=== PATIENT | male | born 1965 | race Caucasian/White ===

== ENCOUNTER 2021-08-18 02:00 | Emergency (ER) | payer OTHER ==
[~2021-08-18] VITALS: Ht 188 cm; Wt 108.9 kg
--- NOTE | 2021-08-18 02:26 | NUR ---
PT AAOX4. BIBSELF C/O CELLULITIS ON GROIN AREA X2 DAYS. SEEN AT [facility], 2 DAYS AGO, STATED MEDS DID NOT HELP. CELLULITIS GOT WORSE. PLACED IN BED 7 ON MONITOR AND PULSE OX. AWAITING ER MD FOR EVAL AND ORDERS. NO ACUTE DISTRESS NOTED. AWAITING ORDERS.
[2021-08-18] MEDS ORDERED: diphenhydrAMINE HCL 50 MG/ML VIAL ONE (02:29)
[2021-08-18] MEDS ORDERED: FAMOTIDINE/PF INJ 20 MG/2 ML VIAL IV ONE ×2 (02:30)
[2021-08-18] MEDS ORDERED: CEFEPIME 1 GM VIAL ONE (02:30)
[2021-08-18] MEDS ORDERED: VANCOMYCIN 1 GM in IV D5W 250 ML IV ONE (02:30)
[2021-08-18] MEDS ORDERED: MORPHINE SULFATE INJ 4 MG/ML DISP.SYRIN ONE (02:30)
[2021-08-18] MEDS ORDERED: VANCOMYCIN 1 GM VIAL ONE (02:30)
[2021-08-18] MEDS ORDERED: ONDANSETRON HCL/PF 4 MG/2 ML VIAL ONE (02:30)
[2021-08-18] MEDS ORDERED: MORPHINE SULFATE INJ 2 MG/ML DISP.SYRIN IV ONE (02:30)
[2021-08-18] MEDS ORDERED: IV NS 0.9% 1,000 ML BAG IV ONE (02:30)
[2021-08-18] MEDS ORDERED: KETOROLAC TROMETHAMINE 15 MG/ML VIAL ONE (02:30)
[2021-08-18] MEDS ORDERED: ONDANSETRON HCL/PF 4 MG/2 ML VIAL IVP ONE (02:30)
[2021-08-18] MEDS ORDERED: KETOROLAC TROMETHAMINE INJ 30 MG/ML VIAL IV ONE (02:30)
[2021-08-18] MEDS ORDERED: CEFEPIME 1 GM in IV D5W 50 ML IV ONE (02:30)
[2021-08-18] MEDS ORDERED: diphenhydrAMINE HCL 50 MG/ML VIAL IV ONE (02:30)
[2021-08-18] MEDS ORDERED: IOHEXOL-300 100 ML VIAL IV ONE (02:33)
[2021-08-18] MEDS ORDERED: IV NS 0.9% 250 ML IV ONE (02:33)
--- NOTE | 2021-08-18 03:07 | NUR ---
UNABLE TO PROVIDE URINE AT THIS TIME
--- NOTE | 2021-08-18 03:22 | NUR ---
DEVONID SWABBED, SENT TO LAB.
[2021-08-18 03:27] LABS: BASOPHILS # (AUTO) 0.1 K/uL (0.0-0.2); BASOPHILS % (AUTO) 0.6 % (0.0-2.0); EOSINOPHILS % (AUTO) 1.1 % (0.0-6.0); HEMATOCRIT 41 % (39-51); HEMOGLOBIN 13.9 g/dL (13.5-17.5); LYMPHOCYTES # (AUTO) 1.7 K/uL (0.8-4.8); LYMPHOCYTES % (AUTO) 13.2 % (20.0-44.0); MEAN CORPUSCULAR HGB CONC 34 g/dl (31.0-36.0); MEAN CORPUSCULAR VOLUME 97 fL (80-96); MONOCYTES # (AUTO) 1.1 K/uL (0.1-1.30); MONOCYTES % (AUTO) 8.2 % (2.0-12.0); NEUTROPHILS # (AUTO) 9.9 K/uL (1.8-8.9); NEUTROPHILS % (AUTO) 76.9 % (43.0-81.0); PLATELET COUNT (AUTO) 269 K/uL (150-450); RED BLOOD CELL COUNT(AUTO) 4.28 MIL/uL (4.5-6.0); WHITE BLOOD COUNT (AUTO) 12.8 K/uL (4.3-11.0)
--- NOTE | 2021-08-18 03:28 | NUR ---
CALLED [facility] FOR MS BED
--- NOTE | 2021-08-18 03:32 | NUR ---
UNABLE TO PROVIDE URINE SAMPLE
[2021-08-18 03:47] LABS: ALANINE AMINOTRANSFERASE 33 U/L (12-78); ALKALINE PHOSPHATASE 76 U/L (46-116); ASPARTATE AMINOTRANSFERASE 25 U/L (15-37); BILIRUBIN,DIRECT 0.1 mg/dL (0.0-0.2); BILIRUBIN,TOTAL 0.5 mg/dL (0.2-1.0); CALCIUM, SERUM 8.2 mg/dL (8.5-10.1); CARBON DIOXIDE 26 mmol/L (21-32); CHLORIDE 103 mmol/L (98-107); CREATININE 1.4 mg/dL (0.6-1.3); GLUCOSE 108 mg/dL (74-106); SODIUM SERUM 134 mmol/L (136-145); TOTAL PROTEIN, SERUM 7.4 g/dL (6.4-8.2); UREA NITROGEN, BLOOD 21 mg/dL (7-18)
[2021-08-18] MEDS ORDERED: MIDAZOLAM HCL 2 MG/2ML VIAL ONE (03:51)
--- NOTE | 2021-08-18 03:59 | NUR ---
WHILE IN CT, PT REFUSED. ER MD AWARE. PT STATED HE IS CLAUSTROPHPBIC.
--- NOTE | 2021-08-18 04:44 | NUR ---
PT ASLEEP, VSS.
--- NOTE | 2021-08-18 05:29 | NUR ---
PT NOTED TO BE ASLEEP, ON MONITOR, AND PULSE OX.
--- NOTE | 2021-08-18 05:40 | NUR ---
PAGED DR BROUSSARD AT [phone] @ [facility] FOR [facility] [place] BRANDON AWAITING FOR HIS CALL BACK
--- NOTE | 2021-08-18 05:46 | NUR ---
DR CH ON THE PHONE W/ DR BOWDEN AT [facility]
--- NOTE | 2021-08-18 05:54 | NUR ---
PT GOT ACCEPTED AT [facility] BY DR BOWDEN. TRANSPORTATION AUTH NUMBER: [id number]
--- NOTE | 2021-08-18 05:55 | NUR ---
INSULATION BOARD HEAD SAW OPERATOR, BLINDA: [phone]
--- NOTE | 2021-08-18 06:14 | NUR ---
FAXED FACE SHEET AND CLINICALS TO [facility] INTAKE AT [phone]
--- NOTE | 2021-08-18 07:30 | NUR ---
ASSESSED PT ON BED ASLEEP EASILY AROUSABLE, NOT IN RESPIRATORY DISTRESS, V/S STABLE, KEPT RESTED AND COMFORTABLE. WILL CONTINUE TO MONITOR.
[2021-08-18 09:57] VITALS: BP 151/101
[2021-08-18 10:05] LABS: BILIRUBIN,URINE Negative (NEGATIVE); COLOR,URINE YELLOW (YELLOW); LEUKOCYTE ESTERASE ,URINE Negative (NEGATIVE); NITRITE, URINE Negative (NEGATIVE); PROTEIN,URINE Negative (NEGATIVE); UGLUCOSE Negative (NEGATIVE)
[2021-08-18 10:16] LABS: RBC,URINE NONE SEEN /HPF (0-2); WBC,URINE 0-2 /HPF (0-3)
[2021-08-18 10:17] LABS: BACTERIA,URINE Rare /HPF (None Seen); SQUAMOUS EPITHELIAL CELL,UR Rare /HPF (None Seen)
--- NOTE | 2021-08-18 11:13 | NUR ---
CALLED BRASS MOLDER, BLINDA: [phone] FOR AFTER HOURS PLEASE CALL [phone] OR [phone] PER THEO.
--- NOTE | 2021-08-18 11:25 | NUR ---
CALLED [phone] LEFT [facility] [place] CALL [place] BACK.
--- NOTE | 2021-08-18 11:34 | NUR ---
PT SLEEPING IN BED. TOLERATING R/A WELL WITH NO SOB AT 95%. IV LAC #18G S/L; PATENT AND INTACT. NO S/SX OF PAIN OR DISTRESS AT THIS TIME. SAFETY MEASURES IN PLACE. ALL NEEDS MET AT THIS TIME.
--- NOTE | 2021-08-18 11:53 | NUR ---
Patient does not wish to proceed with medical care recommended by Dr. NORRIS. Patient given information related to possible complications, up to and including , which could occur as a result of leaving the hospital at this time. Patient verbalizes understanding of risks involved due to leaving against medical advice. Patient has REFUSED TO signed AMA form. PT ambulatory with a steady gait. DC'D IV WITH NO ACTIVE BLEEDING. PT REFUSED TO REMOVE ID BAND.
--- NOTE | 2021-08-18 11:58 | NUR ---
SPOKE AND NOTIFIED HUE (ER COORDINATOR) RE PT LEAVING AMA
== END 2021-08-18 12:01 | disposition left against medical advice (07) ==
LOC: ER 02:03
DX: L03.311 Cellulitis of abdominal wall (principal); T78.40XA Allergy, unspecified, initial encounter; X58.XXXA Exposure to other specified factors, initial encounter; R00.0 Tachycardia, unspecified; N28.9 Disorder of kidney and ureter, unspecified; D72.829 Elevated white blood cell count, unspecified; R03.0 Elevated blood-pressure reading, without diagnosis of hypertension; Z20.822 Contact with and (suspected) exposure to COVID-19; Z86.16 Personal history of COVID-19
CPT/HCPCS: 36415; 71045; 80048; 80076; 80307; 80320; 81001; 83605; 84484; 85025; 85730; 87040 ×2; 87081; 87086; 87426; 93005; 96365; 96367; 96375; 99285; C9803; J0692; J1200; J1885; J2270; J2405; J3370; J3490; J7030; J7050; J7060 ×2; Q9967; G0480; J2250